=== PATIENT | male | born 1970 | race African-American/Black ===

== ENCOUNTER 2024-06-06 12:58 | Emergency (ER) | payer BC ==
[~2024-06-06] VITALS: Ht 182.9 cm; Wt 72.0 kg
[2024-06-06 13:01] VITALS: O2SAT 99
[2024-06-06] MEDS: ACETAMINOPHEN 325MG TABLET PO STA (14:38)
[2024-06-06 14:42] LABS: CHLORIDE 109 mEq/L (98-107); POTASSIUM 4.1 mEq/L (3.5-5.1); SODIUM 139 mEq/L (136-145)
[2024-06-06 14:43] LABS: CALCIUM 9.2 mg/dL (8.7-10.4); CARBON DIOXIDE 25 mEq/L (21-32)
[2024-06-06 14:48] LABS: CREATININE 1.2 mg/dL (0.6-1.3); GLUCOSE 99 mg/dL (70-105); UREA NITROGEN BLOOD 13 mg/dL (9-23)
[2024-06-06 14:50] LABS: ALANINE AMINOTRANSFERASE 33 IU/L (10-49); ALBUMIN 4.4 g/dL (3.2-4.8); ASPARTATE AMINOTRANSFERASE 35 IU/L (<34); BILIRUBIN DIRECT 0.3 mg/dL (<=3.0); BILIRUBIN TOTAL 1.1 mg/dL (0.1-1.0); PROTEIN TOTAL 7.4 g/dL (6.0-8.3)
[2024-06-06 14:54] LABS: TROPONIN I HIGH SENSITIVITY < 4 ng/L (3.0-53)
[2024-06-06 14:57] LABS: PROTHROMBIN TIME 11.1 sec (9.6-11.0)
[2024-06-06 15:06] LABS: HEMATOCRIT. 44.5 % (42.0-52.0); HEMOGLOBIN. 14.5 g/dL (14.0-18.0); MEAN CORPUSCULAR HEMOGLOBIN 29.9 pg (28.0-32.0); MEAN CORPUSCULAR HGB CONC 32.5 g/dL (31.0-37.0); MEAN PLATELET VOLUME 8.6 fl (7.4-10.4); PLATELET 194 x1000/uL (130-400); RED BLOOD CELL COUNT 4.83 mill/uL (4.7-6.1); RED CELL DISTRIBUTION WIDTH 13.5 % (11.6-14.6); WHITE BLOOD COUNT 11.6 x1000/uL (4.5-11.0)
[2024-06-06 15:24] LABS: DIFFERENTIAL COMMENT 1
[2024-06-06 16:17] LABS: PLATELET ESTIMATE NORMAL
[2024-06-06 19:45] LABS: CLARITY URINE CLEAR (CLEAR); COLOR URINE YELLOW (YELLOW); GLUCOSE URINE NEGATIVE (NEGATIVE); KETONES URINE 1+ (NEGATIVE); LEUKOCYTE ESTERASE URINE NEGATIVE (NEGATIVE); NITRITE URINE NEGATIVE (NEGATIVE); OCCULT BLOOD URINE 1+ (NEGATIVE); PROTEIN URINE NEGATIVE (NEGATIVE); SPECIFIC GRAVITY URINE 1.024 (1.005-1.030); UROBILINOGEN URINE 0.2 E.U./dL (0.2-1.0)
[2024-06-06 20:07] LABS: RBC URINE 0-2 /hpf (0-2)
[2024-06-06 20:08] LABS: SQUAMOUS EPITHELIAL CELL URINE RARE /lpf (RARE/1+)
[2024-06-06 20:09] LABS: BACTERIA URINE RARE; WBC URINE 0-2 /hpf (0-2)
[2024-06-06 20:46] VITALS: BP 108/62; PULSE 72; RESP 14; TEMP 36.8; O2SAT 97
== END 2024-06-06 21:11 | disposition home or self-care (01) ==
LOC: ER 12:58
DX: R10.84 Generalized abdominal pain (principal); Z95.0 Presence of cardiac pacemaker
CPT/HCPCS: 80076; 80048; 81003; 83880; 83690; 85025; 85610; 84484; 36415; 71045; 74176; 93005; 99285; Z7610 ×2